=== PATIENT | male | born 1975 | race Hispanic/Latino ===

== ENCOUNTER 2016-11-17 02:51 | Observation (INO) ==
[2016-11-17] MEDS ORDERED: NITROGLYCERIN TOP ONE (03:01)
[2016-11-17] MEDS ORDERED: MAALOX PLUS LIQUID PO ONE (03:29)
[2016-11-17] MEDS ORDERED: TYLENOL PO ONE (03:29)
[2016-11-17 03:50] LABS: AGAP 15; ALBUMIN 4.5 g/dL (3.5-5.0); ALKALINE PHOSPHATASE 71 U/L (32-122); BUN 8 mg/dL (8-22); CALCIUM 8.7 mg/dL (8.8-10.2); CHLORIDE 99 mmol/L (98-107); COSMO 271; GOT 30 U/L (10-34); GPT 39 U/L (10-44); SODIUM 136 mmol/L (136-145); TCO2 23 mmol/L (25-35); TOTAL PROTEIN 7.1 g/dL (6.3-8.3)
--- NOTE | 2016-11-17 04:13 | EKG Report ---
Test Performed on : 11/17/2016 02:57:02 AM Test Reason : pain Blood Pressure : / mmHG Vent. Rate : 076 BPM Atrial Rate : 076 BPM P-R Int : 172 ms QRS Dur : 090 ms QT Int : 404 ms P-R-T Axes : 055 046 052 degrees QTc Int : 454 ms Normal sinus rhythm. Possible Left atrial enlargement T wave abnormality, consider anterolateral ischemia Abnormal ECG No previous ECGs available Unconfirmed Result
[2016-11-17] MEDS ORDERED: MORPHINE IV ONE (04:37)
--- NOTE | 2016-11-17 05:15 | EKG Report ---
Test Performed on : 11/17/2016 04:54:53 AM Test Reason : pain Blood Pressure : / mmHG Vent. Rate : 050 BPM Atrial Rate : 050 BPM P-R Int : 176 ms QRS Dur : 096 ms QT Int : 442 ms P-R-T Axes : 059 074 061 degrees QTc Int : 402 ms Sinus bradycardia. Possible Left atrial enlargement Marked T wave abnormality, consider anterolateral ischemia Abnormal ECG When compared with ECG of 17-NOV-2016 02:57, (Unconfirmed) Vent. rate has decreased BY 26 BPM QT has shortened Unconfirmed Result
[2016-11-17] MEDS ORDERED: NS 1,000 ML IV PRN (05:52)
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
[2016-11-17] MEDS ORDERED: NS 1,000 ML IV ONE (06:10)
[2016-11-17] MEDS ORDERED: ZOFRAN PO PRN (06:10)
[2016-11-17 06:29] LABS: MANUAL DIFF NEEDED? NO
[2016-11-17 06:40] LABS: BASO% 0.5 % (0.0-0.8); EOS# 0.23 X1000 (0.0-0.7); EOS% 3.9 % (0.0-10.0); HEMOGLOBIN 16.6 g/dL (14.0-18.0); IMM GRAN# 0.03 X1000 (0.0-0.04); IMM GRAN% 0.5 % (0.0-0.5); LYMPH# 1.74 X1000 (1.2-3.4); LYMPH% 29.5 % (20.5-51.1); MCH 28.7 PG (27-31); MCHC 35.3 g/dL (33-37); MCV 81.2 FL (81-99); MONO# 0.65 X1000 (0.11-0.59); MPV 12.5 FL (7.4-10.4); NEUT% 54.6 % (42.2-75.2); PLT 202 X1000 (130-400); RBC 5.79 XMIL (4.7-6.1)
[2016-11-17] MEDS ORDERED: ASPIRIN PO SCH (10:15)
--- NOTE | 2016-11-17 10:40 | EKG Report ---
Test Performed on : 11/17/2016 10:18:16 AM Test Reason : c/p Blood Pressure : / mmHG Vent. Rate : 060 BPM Atrial Rate : 060 BPM P-R Int : 210 ms QRS Dur : 100 ms QT Int : 444 ms P-R-T Axes : 063 082 058 degrees QTc Int : 444 ms Sinus rhythm. with 1st degree AV block. Incomplete right bundle branch block ST \T\ Marked T wave abnormality, consider anterolateral ischemia Abnormal ECG When compared with ECG of 17-NOV-2016 10:17, (Unconfirmed) No significant change was found Confirmed by Lawson Matos MD ([id number]) on 12/13/2016 6:42:20 PM
--- NOTE | 2016-11-17 14:44 | HISTORY AND PHYSICAL ---
PRIMARY CARE PHYSICIAN: None. CHIEF COMPLAINT: Chest pain. HISTORY OF PRESENTING ILLNESS: This is a 41-year-old male, who presented to [facility] around 3:00 a.m. this morning with complaints of left-sided chest pain. The patient does not speak any Estonian. So, we use the burr picker line and he states that he feels pressure in his chest. Feels like something is sitting on his chest and rated the pain as 6/10. He states he has a history of some hyperlipidemia and GERD and has had a heart stent placement. There was a little bit of communication issues. He told us he had 1 stent. He told the PA for cardiology that he had 4 stents in [place] but was unsure of the hospital name. His workup in the emergency room showed enzymes x3 were negative. EKG on arrival showed normal sinus rhythm at 76. On arrival, he had a blood pressure of 156/95. So, he is being admitted for further evaluation and treatment. PAST MEDICAL HISTORY: Hyperlipidemia and GERD. PAST SURGICAL HISTORY: Heart stent placement. FAMILY HISTORY: Noncontributory. SOCIAL HISTORY: He lives with family. Denied any tobacco use. States he drinks alcohol occasionally and no illicit drugs. ALLERGIES: He has no known drug allergies. HOME MEDICATIONS: 1. Aspirin 81 mg p.o. daily. 2. Metoprolol 50 mg a half a tablet b.i.d. REVIEW OF SYSTEMS: He denied any fever, chills, blurred vision, dizziness. He is positive for left-sided chest pain. Denied any radiating of symptoms. States that it feels like pressure sitting on his chest. Denied any cough, shortness of breath, constipation, diarrhea, abdominal pain, nausea, vomiting, or burning or hurting with urination. LABORATORY DATA: White blood cell count of 5.89, hemoglobin 16.6, hematocrit 47, platelets 202,000. Sodium 136, potassium 4.0. Chloride 99, CO2 of 23. BUN of 8, creatinine 0.7, glucose 115. Lipase of 30. Cardiac enzymes x3 sets were negative. EKG showed normal sinus rhythm at 76. PHYSICAL EXAMINATION: VITAL SIGNS: On arrival, he had a temperature of 97.8 degrees, pulse 75, respirations 21, blood pressure 156/95 saturating 96% on room air. GENERAL: This is a 41-year-old male, who does not speak any Estonian so the burr picker line was used. HEENT: Normocephalic and atraumatic. Pupils are equal, round, reactive to light. Extraocular movements are intact. The oropharynx and nares are clear. NECK: Supple. LUNGS: Clear to auscultation bilaterally with equal lung expansion and chest wall movement. HEART: With regular rate and rhythm. No murmurs, rubs, or gallops. ABDOMEN: Soft, nontender. There is tenderness to the epigastric area to palpation. Bowel sounds x4 quadrants are present. EXTREMITIES: No clubbing, cyanosis, or edema. NEUROLOGICAL: The cranial nerves 2-12 appear grossly intact. ASSESSMENT: 1. Chest pain. 2. Gastroesophageal reflux disease. 3. Hyperlipidemia. 4. Hypertension. PLAN: He was admitted to the medical unit at [place] was held n.p.o. We consulted Cardiology services. He was scheduled for a Lexiscan today. He was placed on normal saline at 100 mL an hour. Continue his home medications as previously identified and further orders after results from Lexiscan. Dictated by SURJIT Serra for Geraldo Billings MD cc: SURJIT Serra MD
[2016-11-17] MEDS ORDERED: AMINOPHYLLINE ONE (14:57)
[2016-11-17] MEDS ORDERED: LEXISCAN ONE (14:57)
--- NOTE | 2016-11-17 15:00 | Diag Imaging Result Document ---
PROCEDURE NAME: MYOCARDIAL PERF SCAN, STR/REST - 11/17/2016 LEXISCAN CARDIOLITE STRESS TEST: Lexiscan was infused per standard protocol. Patient developed chest pain requiring aminophylline given intravenously. Stress electrocardiogram was negative for ischemia. Normal response to Lexiscan infusion. Next, 12.4 mCi of Cardiolite was injected for the rest phase, 36 millicuries of Cardiolite was injected for the stress phase. Gated SPECT images were obtained in standard views. Images revealed significant diaphragmatic attenuation. There is normal myocardial perfusion. Left ventricular ejection fraction 71%. Left ventricular cavity size was normal. There is chest wall attenuation also noted. CONCLUSIONS: 1. The patient developed chest pain requiring aminophylline infusion during Lexiscan infusion. 2. Negative Lexiscan stress electrocardiogram. 3. Normal myocardial perfusion. 4. Left ventricular ejection fraction 71%. cc: MD Kelly Mckee PA
[2016-11-17 15:22] VITALS: BP 132/63
[2016-11-17 15:26] LABS: HDL 45 mg/dL (35-55); LDL 131 mg/dL; TRIGLYCERIDES 145 mg/dL (39-160); VLDL 29 mg/dL
--- NOTE | 2016-11-17 16:31 | ECHO REPORT ---
ORDER DATE: 11/17/2016 ECHOCARDIOGRAPHIC MEASUREMENTS: 1. Interventricular septum 1.3, left ventricular posterior wall 1.3. 2. Diastolic diameter 4.3, left atrium 3.2, aorta 2.9, normal left ventricular cavity size. Estimated ejection fraction of 65%. There is mild left ventricular hypertrophy. 3. Aortic valve leaflets are mildly sclerosed, opening normally. Mitral valve was normal. Tricuspid valve was normal. Pulmonic valve was normal. 4. Peak velocity across the aortic valve is less than 2 m/sec. There is no aortic stenosis. There is mild aortic regurgitation. There is mild mitral regurgitation, mild tricuspid regurgitation. Peak velocity across the tricuspid valve was 1.9 m/sec. 5. There is no pericardial effusion or obvious intracardiac mass or thrombus seen. cc: MD Joe Mckee MD
--- NOTE | 2016-11-17 19:43 | CONSULTATION ---
DATE OF CONSULTATION: 11/17/2016 CONSULTATION REQUESTED BY: Hospitalist Service REASON FOR CONSULTATION: Chest pain. HISTORY: Mr. Tucker is a 41-year-old Nepalese gentleman who comes in the hospital with complaints of recurrent left anterior chest discomfort. He presented to the ER on November 17 at about 3 o'clock in the morning. At the time of presentation, he stated that he had been hurting in the left anterior chest, sharp discomfort, intermittent, somewhat associated with shortness of breath, that had been going on for at least 1 hour. It started at rest. He did not find any relief and decided to come in for evaluation. upon presentation, they did a 12 -lead EKG that showed sinus rhythm with diffuse repolarization abnormality across the precordial leads, T wave inversion in V1 through V6. EKG has been repeated 2 more times and they look just about the same. Three sets of troponins have been drawn and they are all negative. The patient says that the discomfort has subsided gradually. The patient states that he has a history of coronary heart disease. PAST MEDICAL HISTORY: positive for severe coronary artery disease. He received a stent initially first in 2013, followed a week later by a second intervention, then subsequently a third one, and finally about 8 months ago, they did a fourth intervention. The patient says that he was put on Effient for a whole year and he discontinued that. He had some elevated blood pressure. He has been told that he has elevated cholesterol. 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 He has had some gastric reflux. PAST SURGICAL HISTORY : is really negative. SOCIAL HISTORY: He is . 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 He says that he has moved to the [facility] about 6 months ago. He used to live in [place]. He is not a smoker, not a drinker. FAMILY HISTORY: Noncontributory. ALLERGIES: Negative. HOME MEDICATIONS: 1. Aspirin. 2. Metoprolol 25 mg twice a day. 3. He also took a cholesterol medicine but he does not remember the name. REVIEW OF SYSTEMS: He does not remember the name of the hospital in [place], [place] where he had all the interventions. He has no other positive respiratory or cardiovascular. He has been active. He plays soccer usually every weekend and he has not had any major difficulty doing that. 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 The pain that brought him to the hospital at this time started at rest. PHYSICAL EXAMINATION: Vital signs: Blood pressure 114/64, temperature 99 degrees, pulse 65, respirations 18. General: He is awake, alert, oriented, in no distress. HEENT : Unremarkable. Chest: Clear to auscultation and percussion. Cardiac: Heart sounds regular and rhythmic. No gallop or murmur. Abdomen: His abdomen is scaphoid, nontender. No masses. No hepatomegaly. Extremities: Show good pulses. No peripheral edema. Neurologic: He moves all four extremities, follows commands. LABORATORY DATA: Blood work shows normal sodium, potassium, BUN, creatinine, liver function tests. His cholesterol has not been checked. His hemoglobin is 16.6, hematocrit 47%. IMPRESSION: 1. Patient who presented with chest pain at rest, somewhat atypical. 2. Abnormal EKG. 3. History of severe coronary heart disease, previous stents, unknown location. The patient does not have any card from the [facility], hospital name or number to call for records. 4. History of hypertension and hyperlipidemia/dyslipidemia. RECOMMENDATIONS: We will review echocardiogram and Lexiscan myocardial perfusion stress test. We will check lipids. Further instructions will be given upon review of those tests. If the studies are negative, the patient may be discharged home with instructions to follow up either with us if he remains in town or with his doctors in [place] if he returns to [place]. We will suggest to him to resume a statin, pravastatin 40 mg daily, continue metoprolol, possibly add a dose of 25 to 50 twice a day, aspirin, and possibly either Effient 10 mg or Plavix 75 mg indefinitely. Thank you for asking us to participate in his evaluation. cc: Joe Noyola MD [facility]
[2016-11-17] MEDS ORDERED: TOPROL XL PO SCH (21:00)
[2016-11-18] MEDS ORDERED: ASPIRIN EC PO SCH (09:00)
--- NOTE | 2016-11-19 18:24 | DISCHARGE SUMMARY ---
ADMISSION DATE: 11/17/2016 DISCHARGE DATE: 11/17/2016 ADMISSION DIAGNOSES: 1. Chest pain. 2. Gastroesophageal reflux disease. 3. Hyperlipidemia. 4. Hypertension. DISCHARGE DIAGNOSES: 1. Chest pain resolved. 2. Gastroesophageal reflux disease. 3. Hyperlipidemia. 4. Hypertension. SUMMARY OF FINDINGS: This is a 41-year-old male who was unable to speak any Lao. We used the american sign language interpreter line. He stated that he had chest pain in the left side of his chest that began around 3 a.m. on the morning of arrival. He stated that he felt like something was sitting on his chest and rated the pain a 6/7. He had a history of hyperlipidemia, GERD, and heart stent placements but there was some confusion through the american sign language interpreter line as he told one staff member he had 1 stent and the PA for Cardiology he told that he had 4 stents that were placed in [place] and that he was unsure of the hospital name where he had it done. Workup in the ER showed enzymes x3 sets were negative. His EKG showed normal sinus rhythm at 76. He was admitted. We consulted Cardiology who did a myocardial perfusion scan that was read as normal. He developed chest pain during the myocardial perfusion scan requiring an aminophylline infusion during it. He had an ejection fraction of 71% with normal myocardial perfusion and it was felt that he could be safely discharged home. DISCHARGE MEDICATIONS: 1. He was placed on aspirin 81 mg p.o. daily. 2. Given a prescription for metoprolol 25 mg p.o. b.i.d. #60 with 2 refills and pravastatin 40 mg p.o. at bedtime #30 with 2 refills. FOLLOWUP: He was given information for the physician referral line to establish with a primary care physician and information on the [facility]. All discharge instructions were reviewed with the patient and he verbalized understanding. DISCHARGE TIME: 35 minutes. Dictated by SURJIT Serra for Geraldo Billings MD cc: SURJIT Serra MD
== END 2016-11-17 17:15 | disposition home or self-care (01) ==
LOC: P.MEDSURG 02:51 → P.ED 02:51 → P.MEDSURG 13:54
PROVIDERS: ATTEND Family Medicine